=== PATIENT | female | born 1985 | race Caucasian/White ===

== ENCOUNTER 2022-04-04 12:16 | Emergency (ER) | payer MEDICAID ==
[~2022-04-04] VITALS: Ht 160 cm; Wt 74.8 kg
[2022-04-04 12:26] VITALS: BP 162/95
--- NOTE | 2022-04-04 13:05 | NUR ---
36/F PRESENTS TO ED WITH C/O CHEST PAIN AND DIZZINESS TODAY, STATES SHE WAS ON HER WAY TO SEE HER OB DOCTOR AND CAME TO ED. PATIENT DENIES RECENT INJURY OR TRAUMA.
[2022-04-04 13:31] VITALS: BP 162/95
--- NOTE | 2022-04-04 13:31 | NUR ---
Patient discharged with v/s stable. Written and verbal after care instructions ABOUT PANIC ATTACK AND NONSPECIFIC CHEST PAIN given and explained. Patient verbalized understanding. Ambulatory with steady gait. All questions addressed prior to discharge. Advised to follow up with PMD.
== END 2022-04-04 13:31 | disposition home or self-care (01) ==
LOC: MED 12:16
DX: R07.89 Other chest pain (principal); F41.9 Anxiety disorder, unspecified; A53.9 Syphilis, unspecified; F17.200 Nicotine dependence, unspecified, uncomplicated; K21.9 Gastro-esophageal reflux disease without esophagitis; D64.9 Anemia, unspecified; Z98.890 Other specified postprocedural states
CPT/HCPCS: 93005; 99283